=== PATIENT | female | born 1955 | race Caucasian/White ===

== ENCOUNTER 2020-11-27 08:06 | Day surgery (SDC) | payer OTHER ==
[~2020-11-27] VITALS: Ht 165.1 cm; Wt 61.8 kg
[2020-11-27] MEDS ORDERED: Ambien10 MG PO (08:30)
[2020-11-27] MEDS ORDERED: EUTHYROX125 MCG PO (08:30)
== END 2020-11-27 10:05 | disposition home or self-care (01) ==
LOC: ORSCSDS 08:06
PROVIDERS: Internal Medicine Gastroenterology
PROC: 0DJD8ZZ Inspection of Lower Intestinal Tract, Via Natural or Artificial Opening Endoscopic (ICD-10-PCS; principal; 2020-11-27 09:15)
DX: Z12.11 Encounter for screening for malignant neoplasm of colon (principal); Z80.0 Family history of malignant neoplasm of digestive organs; K64.8 Other hemorrhoids; Z79.899 Other long term (current) drug therapy
CPT/HCPCS: J2704; J7120

== ENCOUNTER → 2021-03-17 | Outpatient (CLI) | payer OTHER ==
[~2021-03-17] MED LIST: Ambien10 MG PO; EUTHYROX125 MCG PO
== END | disposition home or self-care (01) ==
LOC: LAB 08:11 → LAB SHORT 08:11
DX: L82.1 Other seborrheic keratosis (principal)
CPT/HCPCS: 88305